=== PATIENT | female | born 1960 | race Hispanic/Latino ===

== ENCOUNTER 2018-06-24 09:38 | Outpatient (CLI) | payer OTHER | END 2018-06-24 09:39 | disposition home or self-care (01) | LOC: LAB 09:38 | DX: E55.9 Vitamin D deficiency, unspecified (principal); E78.2 Mixed hyperlipidemia; R73.09 Other abnormal glucose; E03.9 Hypothyroidism, unspecified ==

== ENCOUNTER 2018-10-16 10:10 | Outpatient (CLI) | payer OTHER | END 2018-10-16 10:11 | disposition home or self-care (01) | LOC: LAB 10:10 ==